=== PATIENT | female | born 1970 | race Caucasian/White ===

== ENCOUNTER 2017-12-29 09:44 | Emergency (ER) | payer OTHER ==
[~2017-12-29] VITALS: Ht 170.2 cm; Wt 98.0 kg
[2017-12-29 09:54] VITALS: Ht 170.2 cm; Wt 98.0 kg
[2017-12-29 11:32] LABS: BASOPHIL % 0.4 % (0-2); PLATELET COUNT 241 x10^3mcL (130-400)
[2017-12-29 11:35] LABS: RED CELL DISTRIBUTION WIDTH 16.8 % (11.5-14.5)
[2017-12-29 11:38] LABS: CALCIUM 8.5 mg/dL (8.5-10.1); CARBON DIOXIDE 28.6 mmol/L (21-32); CHLORIDE SERUM 101 mmol/L (98-107); CREATININE SERUM 0.7 mg/dL (0.6-1.0); GFR1 > 60 mL/min; GLUCOSE SERUM 98 mg/dL (74-106); POTASSIUM SERUM 3.7 mmol/L (3.5-5.1); SODIUM SERUM 138 mmol/L (136-145)
[2017-12-29 11:47] LABS: UA SPECIFIC GRAVITY <=1.005 (1.005-1.035); microscopic required? YES; urine erythrocyte TRACE (NEGATIVE)
[2017-12-29 11:51] LABS: ALKALINE PHOSPHATASE 97 U/L (46-116); ALT/SGPT 23 U/L (14-59); AST/SGOT 16 U/L (15-37); BILIRUBIN TOTAL 0.3 mg/dL (0.20-1.00); FREE T4 1.02 ng/dL (0.76-1.46); TOTAL PROTEIN, SERUM 8.2 g/dL (6.4-8.2)
[2017-12-29 14:16] VITALS: BP 147/84
== END 2017-12-29 14:16 | disposition left against medical advice (07) ==
LOC: ED 09:44
PROVIDERS: Emergency Medicine
DX: R51 Headache (principal); R42 Dizziness and giddiness; M54.2 Cervicalgia; R00.2 Palpitations; I10 Essential (primary) hypertension; Z88.8 Allergy status to other drugs, medicaments and biological substances; Z88.6 Allergy status to analgesic agent
CPT/HCPCS: 84439; J2270; J2765; J7030; J8597